=== PATIENT | female | born 1985 | race Caucasian/White ===

== ENCOUNTER 2020-01-27 13:20 | Emergency (ER) | payer MEDICAID ==
[~2020-01-27] VITALS: Ht 157.5 cm; Wt 71.8 kg
[~2020-01-27 13:20] MED LIST: LAMO100T PO; LAMO200T2 PO; LAMO25TA5 PO; LITH300C PO; OLAN15TA3 PO
[2020-01-27 13:47] VITALS: BP 108/75
[2020-01-27 14:31] LABS: CLARITY,URINE SLIGHTLY CLOUDY (Clear); COLOR,URINE YELLOW (Yellow); GLUCOSE, URINE NEGATIVE (Neg); KETONES,URINE NEGATIVE (Neg); LEUKOCYTE ESTERASE ,URINE MODERATE (Neg); NITRITES, URINE NEGATIVE (Neg); OCCULT BLOOD,URINE LARGE (Neg); PROTEIN,URINE 100 mg/dl (Neg); URINE HCG NEGATIVE (NEG); UROBILINOGEN,URINE 0.2 E.U/dL (0.2-1.0)
[2020-01-27 14:42] LABS: UA COLLECTION TYPE CLN CATCH MIDSTREAM
[2020-01-27 14:44] LABS: SQUAMOUS EPITHELIAL CELL,UR FEW /LPF (FEW)
[2020-01-27 14:45] LABS: WBC,URINE TNTC /HPF (0-4)
[2020-01-27 14:54] LABS: BACTERIA,URINE 1+ /HPF (Neg); RBC,URINE 50-100 /HPF (0-2)
[2020-01-27] MEDS ORDERED: NITR100C6 PO (15:03)
== END 2020-01-27 15:22 | disposition home or self-care (01) ==
LOC: ER 13:20
DX: N39.0 Urinary tract infection, site not specified (principal); J45.909 Unspecified asthma, uncomplicated; F31.9 Bipolar disorder, unspecified; Z79.899 Other long term (current) drug therapy
CPT/HCPCS: 81001; 81025; 87077; 87088; 87186; 99283

== ENCOUNTER 2020-04-15 18:36 | Emergency (ER) | payer MEDICAID ==
[~2020-04-15] VITALS: Ht 157.5 cm; Wt 75.0 kg
[~2020-04-15 18:36] MED LIST changes: +NITR100C6 PO
[2020-04-15 20:18] VITALS: BP 116/75
== END 2020-04-15 20:20 | disposition home or self-care (01) ==
LOC: ER 18:37
DX: S90.31XA Contusion of right foot, initial encounter (principal); W20.8XXA Other cause of strike by thrown, projected or falling object, initial encounter; Y93.89 Activity, other specified; Y92.89 Other specified places as the place of occurrence of the external cause; Y99.9 Unspecified external cause status
CPT/HCPCS: 73630; 99283

== ENCOUNTER 2020-10-01 18:13 | Emergency (ER) | payer MEDICAID ==
[~2020-10-01] VITALS: Ht 157.5 cm; Wt 72.9 kg
[2020-10-01] MEDS ORDERED: amoxicillin 250mg capsule PO ONE (19:25)
[2020-10-01] MEDS ORDERED: acetaminophen 325mg tablet PO ONE (19:25)
[2020-10-01] MEDS ORDERED: AMOX500C2 PO (19:28)
[2020-10-01 19:55] VITALS: BP 133/80
== END 2020-10-01 19:56 | disposition home or self-care (01) ==
LOC: ER 18:14
DX: K08.89 Other specified disorders of teeth and supporting structures (principal); J45.909 Unspecified asthma, uncomplicated; F31.9 Bipolar disorder, unspecified; Z79.2 Long term (current) use of antibiotics; Z79.899 Other long term (current) drug therapy; W21.05XA Struck by basketball, initial encounter; Y93.89 Activity, other specified; Y93.67 Activity, basketball
CPT/HCPCS: 41899; 99283; 99284

== ENCOUNTER 2023-02-21 13:35 | Emergency (ER) | payer MEDICAID ==
[~2023-02-21] VITALS: Ht 162.6 cm; Wt 81.0 kg
[2023-02-21 14:10] VITALS: BP 106/73
== END 2023-02-21 14:55 | disposition left against medical advice (07) ==
LOC: ER 13:36
DX: O26.892 Other specified pregnancy related conditions, second trimester (principal); R10.30 Lower abdominal pain, unspecified; J45.909 Unspecified asthma, uncomplicated; F31.9 Bipolar disorder, unspecified; Z79.899 Other long term (current) drug therapy; Z79.1 Long term (current) use of non-steroidal anti-inflammatories (NSAID); Z79.2 Long term (current) use of antibiotics
CPT/HCPCS: 99284

== ENCOUNTER 2023-08-14 09:41 | Inpatient (IN) | payer MEDICAID ==
[~2023-08-14] VITALS: Ht 157.5 cm; Wt 68.8 kg
--- NOTE | 2023-08-14 10:54 | NUR ---
patient is resting quielty while in bed, no distress noted.
--- NOTE | 2023-08-14 10:54 | NUR ---
patient changed into green scrubs and belongings removed and placed into room 27 in overflow.
[2023-08-14 11:05] LABS: URINE HCG NEGATIVE (NEG)
[2023-08-14 11:07] LABS: BILIRUBIN,URINE SMALL (Neg); CLARITY,URINE CLOUDY (Clear); COLOR,URINE YELLOW (Yellow); GLUCOSE, URINE NEGATIVE (Neg); KETONES,URINE >=80 mg/dl (Neg); LEUKOCYTE ESTERASE ,URINE NEGATIVE (Neg); NITRITES, URINE NEGATIVE (Neg); OCCULT BLOOD,URINE LARGE (Neg); PROTEIN,URINE 30 mg/dl (Neg); UROBILINOGEN,URINE 0.2 E.U/dL (0.2-1.0)
[2023-08-14 11:12] LABS: BASOPHILS % (AUTO) 0.5 % (0-1); EOSINOPHILS % (AUTO) 0.1 % (0-6); HEMATOCRIT 40.3 % (35.0-45.0); HEMOGLOBIN 12.9 g/dl (12.0-16.0); LYMPHOCYTES % (AUTO) 27.5 % (21-51); MEAN CORPUSCULAR HEMOGLOBIN 25.7 PG (27.0-31.0); MEAN CORPUSCULAR VOLUME 80.5 FL (78-98); MEAN PLATELET VOLUME 8.5 FL (7.4-10.4); MONOCYTES # (AUTO) 0.6 X10'3 (0-0.9); MONOCYTES % (AUTO) 7.8 % (2-12); NEUTROPHILS # (AUTO) 4.7 X10'3 (1.8-7.7); NEUTROPHILS % (AUTO) 64.1 % (42-75); PLATELET COUNT 275 X10'3 (140-440); RED BLOOD COUNT 5.01 X10'6 (4.20-5.60); RED CELL DISTRIBUTION WIDTH 15.1 % (11.5-14.5); WHITE BLOOD COUNT 7.3 X10'3 (4.5-11.0)
[2023-08-14 11:26] LABS: UA COLLECTION TYPE NON-SPECIFIED
[2023-08-14 11:33] LABS: ALANINE AMINOTRANSFERASE 40 U/L (12-78); ALBUMIN 3.8 G/DL (3.4-5.0); ALKALINE PHOSPHATASE 97 IU/L (46-116); ANION GAP 11 (8-16); ASPARTATE AMINO TRANSFERASE 31 U/L (10-37); BILIRUBIN,TOTAL 0.6 MG/DL (0.1-1.0); BLOOD UREA NITROGEN 9 MG/DL (7-18); BUN/CREATININE RATIO 13.2 (10.0-20.0); CALCIUM 9.4 MG/DL (8.5-10.1); CHLORIDE 104 MMOL/L (99-107); CREATININE 0.68 MG/DL (0.40-0.90); GLUCOSE 90 MG/DL (70-104); POTASSIUM 3.4 MMOL/L (3.5-5.1); SODIUM 139 MMOL/L (135-145); TOTAL CARBON DIOXIDE 24.1 MMOL/L (24-32); TOTAL PROTEIN 7.7 G/DL (6.4-8.2); eCRCL 90 ML/MIN; eGFR > 90 ML/MIN
[2023-08-14 11:33] LABS: BACTERIA,URINE FEW /HPF (Neg); MUCUS STRANDS FEW /LPF (Neg); RBC,URINE TNTC /HPF (0-2); SQUAMOUS EPITHELIAL CELL,UR MODERATE /LPF (FEW); WBC,URINE 0-4 /HPF (0-4)
[2023-08-14 11:47] LABS: URINE AMPHETAMINE SCREEN NEGATIVE (Neg); URINE BARBITUATE SCREEN NEGATIVE (Neg); URINE BENZODIAZEPINES SCREEN NEGATIVE (Neg); URINE CANNABINOID SCREEN NEGATIVE (Neg); URINE COCAINE SCREEN NEGATIVE (Neg); URINE METHADONE SCREEN NEGATIVE (Neg); URINE OPIATE SCREEN NEGATIVE (Neg); URINE PHENCYCLIDINE SCREEN NEGATIVE (Neg)
[2023-08-14 11:48] LABS: ETHANOL < 10 MG/DL (<10)
[2023-08-14 11:59] LABS: ACETAMINOPHEN < 2.0 UG/ML (10-30)
--- NOTE | 2023-08-14 12:38 | NUR ---
Pt brought over from ER main bed 8 to overflow bed 21. Was initially going to put her in bed 20 but she did not wish to go into this room because the hole in the wall and a small hole in the sheet bothered her immensly. Pt is restless, hyperverbal, and hypomanic. Pt asked for a toothbrush and was provided with one. Pt vigorously brushed her teeth for a long period of time. Pt is pleasant and redirectable.
--- NOTE | 2023-08-14 12:47 | NUR ---
pt packet sent to [facility]
--- NOTE | 2023-08-14 12:58 | NUR ---
Pt is singing and talking to herself.
[2023-08-14] MEDS ORDERED: NO HOME MEDS (13:03)
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
--- NOTE | 2023-08-14 14:31 | NUR ---
Pt was becoming agitated because she is unhappy to be on a mental health hold and she does not wish to go to an acute psych unit. Pt is in denial about having any mental health issues. Pt reports that she has been healed by God. Pt reports that she was on a monthly injection before and she did not know when to stop eating and couldn't feel her feelings.
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
--- NOTE | 2023-08-14 15:18 | NUR ---
Pt reports her 's name is Cristino Lowery.
--- NOTE | 2023-08-14 15:20 | NUR ---
Pt reports she gave to her baby at [facility] in [place].
[2023-08-14] MEDS ORDERED: haloperidol lactate 5mg/ml inj ONE (15:39)
[2023-08-14] MEDS ORDERED: diphenhydrAMINE 50 mg/ml inj ONE (15:40)
[2023-08-14] MEDS ORDERED: LORazepam 2 mg/ml vial ONE (15:41)
--- NOTE | 2023-08-14 15:59 | NUR ---
Pt is manic and became agitated with angry hostile verbalizations about not being mentally ill, wanting out of here, she doesn't need to go to a psych unit. Reality orientation, verbal de-escalation, distraction and redirection techniques, as well as a show of support by security ineffective. Attempted to get pt to agree to take some oral medication but she just kept repeating that she doesn't need medications. Obtained verbal order from Dr Talavera for Haldol 10 mg, Ativan 2 mg, and Benadryl 50 mg IM given at 1555. Pt did not fight the injection, no physical restraint necessary.
--- NOTE | 2023-08-14 17:42 | NUR ---
Florecita called from [facility] to report that pt has been accepted by Dr Vick at [facility] at 1735. Estimated transfer time 2300 tonight.
--- NOTE | 2023-08-14 18:30 | NUR ---
APS report filed; called and faxed. Spoke with Piedad.
--- NOTE | 2023-08-14 18:38 | NUR ---
Received pt lying in bed sleeping. Pt declined dinner tray.
--- NOTE | 2023-08-14 21:23 | NUR ---
Pt departed with [facility] new autos delivery driver with belongins and escorted out with security
--- NOTE | 2023-08-14 21:27 | NUR ---
disregard previous note
--- NOTE | 2023-08-14 23:44 | NUR ---
Pt escorted to [facility] with security and all her belongings.
[2023-08-14] MEDS ORDERED: loperamide 2mg capsule PO PRN (23:55)
[2023-08-14] MEDS ORDERED: mag hydrox/Alum hydrox/simeth 30ml oral suspension PO PRN (23:55)
[2023-08-14] MEDS ORDERED: magnesium hydroxide 30ml (MOM) UD suspension PO PRN (23:55)
[2023-08-14] MEDS ORDERED: acetaminophen 325mg tablet PO PRN ×2 (23:55)
[2023-08-14 23:56] VITALS: BP 105/69; PULSE 67; RESP 15; TEMP 98.3; O2SAT 99
[2023-08-15 00:55] VITALS: RESP 15; O2SAT 99
[2023-08-15 01:08] VITALS: BP 105/69; PULSE 67; RESP 15; TEMP 98.3; O2SAT 99
--- NOTE | 2023-08-15 02:12 | NUR ---
Admit Note: Patient arrived via W/C from [facility]. Pt on 5150 for Grave Disability, per hold pt was seen urinating in public. Presents psychotic and manic. Pt presents with symptoms of severe eve, unable to formulate a plan to meet needs due to thought disorder. No place to sleep. Pt was kicked out of [place] and has been non-medication compliant. Pt is cooperative with skin check. Pt has a 5 month old child that was taken by CPS.
[2023-08-15 07:00] VITALS: RESP 18; O2SAT 99
[2023-08-15 08:43] VITALS: BP 101/71; PULSE 87; RESP 18; TEMP 97.1; O2SAT 18
[2023-08-15 08:45] LABS: CHOL/HDL RATIO 2.5 (0.00-4.99); CHOLESTEROL 155 MG/DL (0-200); HDL CHOLESTEROL 63 MG/DL (35-60); LDL CHOLESTEROL 71 MG/DL (50-100); TRIGLYCERIDES 65 MG/DL (20-135)
[2023-08-15 08:48] LABS: HEMOGLOBIN A1C 5.6 % (4.5-6.2)
[2023-08-15] MEDS ORDERED: potassium Cl 20 mEq SR tablet PO STA (12:04)
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
[2023-08-15 19:00] VITALS: BP 98/65; PULSE 75; RESP 15; TEMP 98.1; O2SAT 99
[2023-08-15] MEDS: lithium carbonate 150mg capsule PO SCH (20:00)
[2023-08-15] MEDS ORDERED: risperiDONE 0.5mg tablet PO SCH (21:00)
[2023-08-15] MEDS ORDERED: PALIPERIDONE 3 MG TAB.ER.24 PO SCH (21:00)
--- NOTE | 2023-08-16 01:22 | NUR ---
RN PROGRESS NOTE: LEGAL HOLD: 5150 for GD PROBLEM: BIB Law Enforcement d/t urinating in public, paranoid delusions, and manic behavior. Client has been non-compliant with medications. Has a five month old infant that was taken by CPS. INTERVENTIONS: 1:1 assessment, therapeutic conversation, active listening, medication administration/education/monitoring, behavior monitoring and intervention as needed; provided distraction, redirection, positive reinforcement, reality orientation, and maintained Q15 minute safety checks. RESPONSE: Client was sitting on her bed, reading the Bible at [facility]. She stated "I want to memorize this. It's 16 verses." (Referring to Psalm 91.) She began to quote the first verse. Client then asked this RN to [place] with her because she was having difficulty falling asleep. Client stated she would not take any medications and asked "Am I going to get into trouble for not taking medicine?" This RN stated "You won't get into trouble - but we do encourage you to take the meds." She is soft spoken, has a blunted affect, and depressed mood. Paranoid delusions, client asked if we had 'put something in her water'. Client fell asleep w/o difficulty. PLAN: Pt. continues to require a safe and supportive environment.
[2023-08-16 07:00] VITALS: RESP 18; O2SAT 98
[2023-08-16] MEDS: lithium carbonate 150mg capsule PO SCH ×3 (07:56→20:08)
[2023-08-16 08:00] VITALS: BP 111/77; PULSE 70; RESP 18; TEMP 97.3; O2SAT 98
--- NOTE | 2023-08-16 17:04 | NUR ---
Nursing Progress Note: Lorelei Patient arrived via W/C from [facility]. Pt on 5150 for Grave Disability, per hold pt was seen urinating in public. Presents psychotic and manic. Pt presents with symptoms of severe eve, unable to formulate a plan to meet needs due to thought disorder. No place to sleep. Pt was kicked out of House and has been non-medication compliant. Pt is cooperative with skin check. Pt has a 5 month old child that was taken by CPS. Interventions: 1:1 assessment, therapeutic conversation, active listening, medication administration/education/monitoring, behavior monitoring and intervention as needed; provided distraction, redirection, positive reinforcement, reality orientation, and maintained Q15 minute safety checks. Response: Receive pt awake reading the bible in her room. Pt sat in TV room this am and told this RN that she would not be taking her medication. Pt stated Sally been misdiagnosed, Im a cain and need spiritual healing I dont need medications. Pt refused to put on wrist band and refused to have her labs drawn this am. Pt states she is near sighted, this RN observed pt looking over my head while talking. Pt concerned about how to act to be released from this unit. 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 Pt states that she thinks the reason she is here is because her said things about her to get her put in here. Performed 1:1 bedside. Pt denies SI/HI and AVH. Pt observed singing in the hallway. Pt displaying a labile mood, having long conversations with staff members about concerns to leave. Staff educated pt to discuss feelings with PA today. At 1030 pt agreed to take morning medications. Pt stating that something isnt right and I need to take something. Pt participated in snacks. Pt states that she has someone to stay with named Piedad. PA agreed to speak with Piedad tomorrow. Plan : Pt. continues to require a safe and supportive environment.
[2023-08-16 19:00] VITALS: BP 103/66; PULSE 74; RESP 16; TEMP 97.7; O2SAT 99
[2023-08-16 19:25] VITALS: BP 103/66; PULSE 74; RESP 16; TEMP 97.7; O2SAT 99
--- NOTE | 2023-08-17 03:54 | NUR ---
RN PROGRESS NOTE: LEGAL HOLD: 5150 for GD PROBLEM: BIB Law Enforcement d/t urinating in public, paranoid delusions, and manic behavior. Client has been non-compliant with medications. Has a five month old infant that was taken by CPS. INTERVENTIONS: 1:1 assessment, therapeutic conversation, active listening, medication administration/education/monitoring, behavior monitoring and intervention as needed; provided distraction, redirection, positive reinforcement, reality orientation, and maintained Q15 minute safety checks. RESPONSE: Client stayed in her room during the shift. She socialized with her roommate. During PM med pass she was prone on her bed, with her face in the pillow, and was tearful. She stated "I don't want to take any medicine!" She then agreed to take the 150 mg [place] Cap PO. Later her mood improved. She fell asleep without difficulty. PLAN: Pt. continues to require a safe and supportive environment.
[2023-08-17 07:00] VITALS: RESP 14; O2SAT 99
[2023-08-17] MEDS: ARIPIPRAZOLE 10 MG TABLET PO SCH (07:14)
[2023-08-17] MEDS: lithium carbonate 150mg capsule PO SCH ×2 (07:14→20:34)
[2023-08-17 08:17] VITALS: BP 108/72; PULSE 68; RESP 14; TEMP 97.7; O2SAT 99
[2023-08-17 08:28] LABS: ALANINE AMINOTRANSFERASE 32 U/L (12-78); ALBUMIN 3.7 G/DL (3.4-5.0); ALBUMIN/GLOBULIN RATIO 0.9 (1.1-1.5); ALKALINE PHOSPHATASE 96 IU/L (46-116); ANION GAP 9 (8-16); ASPARTATE AMINO TRANSFERASE 19 U/L (10-37); BILIRUBIN,TOTAL 0.2 MG/DL (0.1-1.0); BLOOD UREA NITROGEN 11 MG/DL (7-18); BUN/CREATININE RATIO 13.9 (10.0-20.0); CALCIUM 9.5 MG/DL (8.5-10.1); CHLORIDE 103 MMOL/L (99-107); CREATININE 0.79 MG/DL (0.40-0.90); GLUCOSE 91 MG/DL (70-104); POTASSIUM 4.4 MMOL/L (3.5-5.1); SODIUM 137 MMOL/L (135-145); TOTAL PROTEIN 7.6 G/DL (6.4-8.2); eCRCL 78 ML/MIN; eGFR 82 ML/MIN
--- NOTE | 2023-08-17 16:28 | NUR ---
Nursing Progress Note: Lorelei Patient arrived via W/C from ER. Pt on 5150 for Grave Disability, per hold pt was seen urinating in public. Presents psychotic and manic. Pt presents with symptoms of severe eve, unable to formulate a plan to meet needs due to thought disorder. No place to sleep. Pt was kicked out of [place] and has been non-medication compliant. Pt is cooperative with skin check. Pt has a 5 month old child that was taken by CPS. Interventions: 1:1 assessment, therapeutic conversation, active listening, medication administration/education/monitoring, behavior monitoring and intervention as needed; provided distraction, redirection, positive reinforcement, reality orientation, and maintained Q15 minute safety checks. Response: Received pt awake in hallway calling my name. Pt observed smiling and asking about leaving today with her sister. Pt read this RN a passage from the bible this morning stating that it spoke to her relationship with her and then took her medications cooperatively. Pt appears to be hypomanic, grandiose and hyper verbal. Overheard pt saying to staff you can call me the genius and observed pt reciting bible verses to staff. When breakfast was delivered this morning pt pushed the exit door in the community room and sounded the alarm. When this RN spoke to her about it she stated Im sorry, I didnt know that wasnt allowed. But, it says exit and thats a lie and I dont like lies. Pt told staff she did it on purpose. Pt moved to the TV room to eat breakfast because pt stated that the music on the TV scared her. Pt went to sleep after breakfast. Pt states that she needs to leave so that she can be with her and see her child who is with CPS. Pt states that her sister Pamela lives in [place] and is willing to take her in. Pt observed talking in the community room with peers and coloring/journaling on the floor in the TV room. Performed 1:1 bedside. Pt denies SI/HI and AVH. At 1430 pt began yelling in her bedroom about her . This RN and Dr. Vick were able to deescalate the situation and in the end pt was smiling and laughing. At 1600 pt began yelling in her room after speaking on the phone with someone. Pt able to calm down. Pt very labile; refusing to take any PRNs to calm down. Pt needs to be redirected multiple times during the day. Pt gave this RN a hug towards the end of the shift. Plan : Pt. continues to require a safe and supportive environment. Addendum: 08/17/23 at 1648 by Dania Aguillon RN Pt told staff that CPS is unaware that she is in the hospital and she is debating if she should notify them. Pt's plan is to be discharged and then attend a meeting as if this hospital visit never happened.
[2023-08-17 19:00] VITALS: RESP 16; O2SAT 98
[2023-08-17 20:39] VITALS: BP 103/66; PULSE 76; RESP 16; TEMP 97.4; O2SAT 98
--- NOTE | 2023-08-17 23:22 | NUR ---
RN PROGRESS NOTE: LEGAL HOLD: 5150 for GD PROBLEM: BIB Law Enforcement d/t urinating in public, paranoid delusions, and manic behavior. Client has been non-compliant with medications. Has a five month old infant that was taken by CPS. INTERVENTIONS: 1:1 assessment, therapeutic conversation, active listening, medication administration/education/monitoring, behavior monitoring and intervention as needed; provided distraction, redirection, positive reinforcement, reality orientation, and maintained Q15 minute safety checks. RESPONSE: pt. received awake in her room at change of shift . Pt. is pleasant and cooperative. She denies SI/HI/AH/VH. Pt. states "I'm sad, there's a lot going on in my life but, I'm okay". Pt. was observed sitting in the manuel writing and socializing with staff. Pt. participated in evening snack. She took her night medications without issue. Observed and appears sleeping without difficulty. PLAN: Pt. continues to require a safe and supportive environment. Addendum: 08/18/23 at 0328 by Lorena Mckinney LVN pt. awaken in the night and walked down to where staff were. Pt. was noted to be agitated and stating a delusional statement about her . Pt. would only speak to the female MHT . Pt. returned to her room and was checked on. Pt. became agitated at this principal technical writer for doing so and stated "i'm fine, just go away" as she sat on the bed reading the bible. pt. appears to be sleeping at this time.
--- NOTE | 2023-08-18 04:52 | NUR ---
LINE DECORATOR documentation: I have reviewed all interventions, assessments performed and documented by Lorena AGRAWAL
[2023-08-18 07:00] VITALS: RESP 18; O2SAT 98
[2023-08-18] MEDS: ARIPIPRAZOLE 10 MG TABLET PO SCH (07:19)
[2023-08-18] MEDS: lithium carbonate 150mg capsule PO SCH ×2 (07:19→19:42)
[2023-08-18 08:00] VITALS: BP 104/75; PULSE 88; RESP 18; TEMP 97.2; O2SAT 98
--- NOTE | 2023-08-18 14:40 | NUR ---
CASE MANAGEMENT This Outside Machinist Helper met with Pt. after the hearing, she was very upset that she could not leave yet. She was hoping to leave tomorrow. Pt is interested in going to the [facility] to continue stabilizing once she leaves here. Will put a referral in for her today. Pt. also reported that she does not consent for this Outside Machinist Helper to speak to her sister as she has lost trust in her. Alexandra Recinos LCSW
--- NOTE | 2023-08-18 17:14 | NUR ---
Nursing Progress Note: Lorelei Patient arrived via W/C from [facility]. Pt on 5150 for Grave Disability, per hold pt was seen urinating in public. Presents psychotic and manic. Pt presents with symptoms of severe eve, unable to formulate a plan to meet needs due to thought disorder. No place to sleep. Pt was kicked out of [place] and has been non-medication compliant. Pt is cooperative with skin check. Pt has a 5 month old child that was taken by CPS. Interventions: 1:1 assessment, therapeutic conversation, active listening, medication administration/education/monitoring, behavior monitoring and intervention as needed; provided distraction, redirection, positive reinforcement, reality orientation, and maintained Q15 minute safety checks. Response: Received pt awake, singing in her bathroom. Pt took medications cooperatively and ate breakfast in the community room. Pt showered this am. Performed 1:1 bedside. Pt denies SI/HI and AVH. Pt states I dont think I have time for nursing school. I have to take care of my baby. Pt appears to be calmer today, no labile episodes observed. Pt states that someone has agreed to purchase her a tent to stay in. Pt expressed agreement with court decision for her to stay on the unit longer. Pt states that it would be good for her to be more stable. Appearance is well groomed. Napped intermittently throughout the day. Plan : Pt. continues to require a safe and supportive environment.
[2023-08-18 19:00] VITALS: RESP 16; O2SAT 98
[2023-08-18 19:16] VITALS: BP 117/79; PULSE 91; RESP 16; TEMP 98.6; O2SAT 98
--- NOTE | 2023-08-19 01:20 | NUR ---
Nursing Progress Note: Lorelei Problem: Pt on 5149 for Grave Disability, per hold pt was seen urinating in public. Presented psychotic and manic. Unable to formulate a plan to meet needs due to thought disorder. No place to sleep. Pt was kicked out of [place] and has been non-medication compliant. Pt has a 5 month old child that was taken by CPS. Interventions: 1:1 assessment, therapeutic conversation, active listening, medication administration/education/monitoring, behavior monitoring and intervention as needed; provided distraction, redirection, positive reinforcement, reality orientation, and maintained Q15 minute safety checks. Response: Pt showered on and was dressed in an attractive overly formal dress. She stayed in her room most of shift interacting with roommate and working on a puzzle. Went to group room for snack. Pleasant and cooperative but has multiple requests at times. Pt denies SI/HI and AVH. Given second dose of Trazodone for sleep. After that was able to go to sleep.. Plan : Pt. continues to require a safe and supportive environment. Addendum: 08/19/23 at 0231 by Soumya Rivas RN Disregard charting about Trazodone wrong pt.
[2023-08-19 07:00] VITALS: RESP 16; O2SAT 98
[2023-08-19] MEDS: ARIPIPRAZOLE 15 MG TABLET PO SCH ×2 (07:57→08:06)
[2023-08-19] MEDS: lithium carbonate 150mg capsule PO SCH ×2 (07:59→20:09)
[2023-08-19 08:00] VITALS: BP 103/73; PULSE 69; RESP 14; TEMP 97.9; O2SAT 99
[2023-08-19] MEDS ORDERED: ARIPIPRAZOLE 10 MG TABLET PO SCH (08:00)
--- NOTE | 2023-08-19 09:38 | NUR ---
Initial: Pt admit for psychosis and bipolar d/o. Currently on a regular diet and eating well, documented with 100% PO intake of all meals with the exception of 75% PO intake of lunch 08/15, overall meeting estimated nutrient needs. LBM 08/18 per EMR. No nutrition intervention warranted at this time. Will continue to follow and make recommendations as appropriate. Recommendations: 1) Continue regular diet 2) Bowel care PRN 3) Weekly scaled weights Addendum: 08/19/23 at [address] Amended: Links added.
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
[2023-08-19 19:00] VITALS: BP 119/74; PULSE 80; RESP 16; TEMP 98.7; O2SAT 98; O2SAT 99
--- NOTE | 2023-08-20 04:33 | NUR ---
RN PROGRESS NOTE: LEGAL HOLD: 5250 for GD PROBLEM: BIB Law Enforcement d/t urinating in public, paranoid delusions, and manic behavior. Client has been non-compliant with medications. Has a five month old infant that was taken by CPS. INTERVENTIONS: 1:1 assessment, therapeutic conversation, active listening, medication administration/education/monitoring, behavior monitoring and intervention as needed; provided distraction, redirection, positive reinforcement, reality orientation, and maintained Q15 minute safety checks. RESPONSE: Client was talkative, restless, and disruptive at times. At COS she was in her room, on the phone, singing loudly. She made illogical statements that were disconnected. She talked about her , the Bible, and being "misdiagnosed at 18". She stated "I was stung by the B. But the B didn't kill me." "I was diagnosed with the B." When asked is the 'B' Bipolar? Client shook her head 'yes' and stated "I don't say that word." Client had snack. She is hesitant to take meds, she did take her [place] but stated she need to "talk to the Doctor about it". Client had difficulty falling and staying asleep. Labile mood. Easily agitated. PLAN: Pt. continues to require a safe and supportive environment.
[2023-08-20 07:00] VITALS: BP 104/68; PULSE 72; RESP 18; TEMP 98.6; O2SAT 98
[2023-08-20] MEDS: lithium carbonate 150mg capsule PO SCH ×2 (09:02→20:54)
[2023-08-20] MEDS: ARIPIPRAZOLE 10 MG TABLET PO SCH (09:02)
--- NOTE | 2023-08-20 17:32 | NUR ---
Nursing Progress Note: Lorelei Problem: Pt admitted on 515 for Grave Disability, per hold pt was seen urinating in public. Presents psychotic and manic. Pt presents with symptoms of severe eve, unable to formulate a plan to meet needs due to thought disorder. No place to sleep. Pt was kicked out of [place] and has been non-medication compliant. Pt has a 5 month old child that was taken by CPS. Interventions: 1:1 assessment, therapeutic conversation, active listening, medication administration/education/monitoring, behavior monitoring and intervention as needed; provided distraction, redirection, positive reinforcement, reality orientation, and maintained Q15 minute safety checks. Response: Patient up on the unit at change of shift. Patient going around the unit asking when the doctor will be here, and when she will be discharged. Patient only slept 3.25 hours last night. Patient is well groomed. Patient attends meals and snacks in the community room. At one point when I was in the next room, I could hear her crying loudly, the tech checked on her and she stated that she just couldn't talk about what was wrong. Patient is labile and intrusive. Plan : Pt. continues to require a safe and supportive environment. Addendum: 08/20/23 at 1745 by Irasema Holm RN Patient initially refused her a.m. medications, but then when LAURA Gonzales arrived, she was asking to take her medications.
[2023-08-20 19:00] VITALS: BP 110/74; PULSE 74; RESP 16; O2SAT 100
--- NOTE | 2023-08-21 03:42 | NUR ---
RN PROGRESS NOTE: LEGAL HOLD: 5250 for GD PROBLEM: BIB Law Enforcement d/t urinating in public, paranoid delusions, and manic behavior. Client has been non-compliant with medications. Has a five month old infant that was taken by CPS. INTERVENTIONS: 1:1 assessment, therapeutic conversation, active listening, medication administration/education/monitoring, behavior monitoring and intervention as needed; provided distraction, redirection, positive reinforcement, reality orientation, and maintained Q15 minute safety checks. RESPONSE: Clients' mood was improved since previous night. She went to bed early. Initially she refused her PM 300 mg [place] Cap but then took it, reluctantly. She does not have insight into her mental health needs. Affect is blunted. Had PM snack. PLAN: Pt. continues to require a safe and supportive environment.
[2023-08-21 07:00] VITALS: BP 109/76; PULSE 99; RESP 18; TEMP 97.2; O2SAT 100
[2023-08-21] MEDS: lithium carbonate 150mg capsule PO SCH ×2 (08:18→20:32)
[2023-08-21] MEDS: ARIPIPRAZOLE 10 MG TABLET PO SCH (08:18)
--- NOTE | 2023-08-21 16:04 | NUR ---
Nursing Progress Note: Problem: Pt admitted on 5149 for Grave Disability, per hold pt was seen urinating in public. Presents psychotic and manic. Pt presents with symptoms of severe eve, unable to formulate a plan to meet needs due to thought disorder. No place to sleep. Pt was kicked out of [place] and has been non-medication compliant. Pt has a 5 month old child that was taken by CPS. Interventions: 1:1 assessment provided by morning nurse, TANJA Villalpando. Medication administration/education/monitoring. Behavior monitoring and intervention as needed; maintained Q15 minute safety checks. Response: Per report pt cooperative with morning assessment. Pt accepted by [facility]. She will be discharged on Friday. After lunch pt heard yelling and screaming while on the phone. Pt states, "it was my sister I shouldn't call her." Easily redirected. Pt offered PRN medication for anxiety and declined. She agreed to talk to staff with upset and not to yell on the unit. She remained calm the rest of the afternoon. Plan: Pt. continues to require a safe and supportive environment.
[2023-08-21 19:51] VITALS: BP 130/84; PULSE 78; RESP 16; TEMP 97.5; O2SAT 99
--- NOTE | 2023-08-21 21:45 | NUR ---
Pt in the manuel way yelling, stating I am held here against my will and I want to get out of here so I can go see my baby" My told me that I can go home tonight or tomorrow- I want to go home." Explained to pt. that she is not safe to be discharged yet but we are helping take of her here and that she is safe-pt. continued to insist. Patient came to the nurses station while Notified LAURA Meneses, about the patients behavior; Gideon reinforced that the patient is on 5250. Finally, pt. calmed down and agreed to stay- walked pt. to the room; pt. remained calm.
[2023-08-21] MEDS ORDERED: traZODone 50mg tablet PO ONE (21:55)
--- NOTE | 2023-08-22 04:53 | NUR ---
Nursing Progress Note: Problem: Pt admitted on 5150 for Grave Disability, per hold pt was seen urinating in public. Presents psychotic and manic. Pt presents with symptoms of severe eve, unable to formulate a plan to meet needs due to thought disorder. No place to sleep. Pt was kicked out of [place] and has been non-medication compliant. Pt has a 5 month old child that was taken by CPS. Interventions: Provided 1:1 assessment, medication administration, education, monitoring behavior and interventions as needed; maintained Q15 minute safety checks. Response: Pt was in her room at beginning of shift and was lying in bed. During 1:1 assessment pt denies AVH/SI/HI and was compliant with all medications. She states that she is feeling under the weather and her head and bones in her chest hurt. She was given earplugs for sleep as well as Tylenol for her pain. She was agreeable with treatment. Then around 0 she got agitated and was asking one of the other nurses to turn off the alarm so she could leave out the exit door. She was demanding that she be released and that she had to leave in order to go to her babys cps meetings. She was demanding to speak to the manager philosophy and when her primary nurse tried to calm her down she claimed to not know who the nurse was. Security came up and spoke with pt a bit and charge nurse was able to calm pt down to agreeing to rest for the night. Pt then came back down the manuel and asked that her room be cleaned and sanitized because it smelled. RN then got an odor eliminating spray and sprayed pts room. Pt was satisfied with that and then laid down for the night. Pt came out of room around 0430 to ask for headphones to listen to and went back to sleep. Plan: Pt. continues to require a safe and supportive environment.
[2023-08-22 07:00] VITALS: RESP 16; O2SAT 98
[2023-08-22 07:55] VITALS: BP 161/90; PULSE 82; RESP 16; TEMP 98.4; O2SAT 98
[2023-08-22] MEDS: ARIPIPRAZOLE 10 MG TABLET PO SCH (07:59)
[2023-08-22] MEDS: lithium carbonate 150mg capsule PO SCH ×2 (07:59→21:00)
--- NOTE | 2023-08-22 08:28 | NUR ---
[facility] accepted Pt. She has been accepted for Friday admit. Alexandra Recinos LCSW
--- NOTE | 2023-08-22 16:26 | NUR ---
Nursing Progress Note: Problem: Pt admitted on 5149 for Grave Disability, per hold pt was seen urinating in public. Presents psychotic and manic. Pt presents with symptoms of severe eve, unable to formulate a plan to meet needs due to thought disorder. No place to sleep. Pt was kicked out of [place] and has been non-medication compliant. Pt has a 5 month old child that was taken by CPS. Interventions: 1:1 assessment, therapeutic conversation, active listening, medication administration/education/monitoring, behavior monitoring and intervention as needed; provided distraction ,redirection, limit setting, reality orientation, and maintained Q15 minute safety checks. Response: Pt was up before breakfast pacing the unit and making requests of staff. Pt showered before breakfast. Pt was cooperative with her morning medications with much encouragement. Pt only wished to take one 10 mg Abilify tab instead of two to equal her 20 mg dose. Pt wished to speak with the doctor first. This RN reminded her that she had been taking the 20 mg dose since the and patient took the med. Pt is restless, hyperverbal, intrusive, and easily frustrated. Pt is demanding, loud, and disruptive at times. Pt perseverates on being discharged and gets angry when told she cannot leave today. Pt makes multiple requests for staff to look up phone numbers for her. Pt asked this RN if she could come into the charting room and use a computer. Pt becomes agitated with verbal outbursts and requires frequent limit setting, verbal de-escalation and redirection. Pt is religiously preoccupied. Pt had a chest X-ray done to r/o TB with normal results. Plan: Pt has been accepted at the [facility] with a plan for her to discharge Friday.
[2023-08-22 19:30] VITALS: BP 131/87; PULSE 77; RESP 18; TEMP 98.2; O2SAT 99
--- NOTE | 2023-08-23 04:24 | NUR ---
Nursing Progress Note: Problem: Pt admitted on 5149 for Grave Disability, per hold pt was seen urinating in public. Presents psychotic and manic. Pt presents with symptoms of severe eve, unable to formulate a plan to meet needs due to thought disorder. No place to sleep. Pt was kicked out of [place] and has been non-medication compliant. Pt has a 5 month old child that was taken by CPS. Interventions: Provided 1:1 assessment, medication administration, education, monitoring behavior and interventions as needed; maintained Q15 minute safety checks. Response: At beginning of shift pt was very cooperative and agreeable to assessment and communicating well. When med pass came pt refused her lithium as she stated 900 mg thats too much. I will take my 300 and thats it. Actually, since he upped it to 900, I dont even want to take 300, I am not taking any meds, thats it, Im not taking any meds. was notified and he stated he would speak with her tomorrow about it. After that her and her roommate had a disagreement about speaking with each other. The situation was diffused by charge nurse advising Lorelei to just not talk to roommate as roommate had stated she did not want to talk or listen to Lorelei at all. Lorelei came out to complain that her roommate was on the phone and was given headphones to listen to which she was very grateful for. Pt asked for snacks multiple times. Around 2224 Pt pushed on the exit long enough for the alarm to barely start sounding but did not completely open the door. She then went off on a rant about how she wanted to be released and that she wanted to know if there were any notes stating when she would be discharged, even though her and her RN had discussed that she is planned to be DCd on Friday. Pt then went back to her room and shut her door and fell asleep. Around 0200 pt woke up as staff was cleaning the room nxt to hers and pt became intrusive trying to come in the room. She was directed to go back to her room and pt went to room and began crying. Charge nurse came and calmed her down a bit, pt sat by the nurses station for a few minutes and colored, then returned to her bedroom. Pt has outbursts throughout the night crying about her . Pt sitting in hallway, refuses to go to sleep, refuses any medication that will help calm her. Pt requested having jello for a snack. Plan: Pt. continues to require a safe and supportive environment.
[2023-08-23 07:00] VITALS: RESP 14; O2SAT 95
[2023-08-23 08:00] VITALS: BP 101/66; PULSE 64; RESP 14; TEMP 97.6; O2SAT 95
[2023-08-23] MEDS: ARIPIPRAZOLE 10 MG TABLET PO SCH (08:31)
[2023-08-23] MEDS ORDERED: aripiprazole 400mg suspension ER syringe IM ONE (12:30)
[2023-08-23] MEDS ORDERED: LORazepam 1 MG tablet PO ONE (16:20)
[2023-08-23] MEDS ORDERED: LORazepam 2 mg/ml vial ONE (16:30)
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
[2023-08-23 19:00] VITALS: RESP 16
[2023-08-23] MEDS: lithium carbonate 150mg capsule PO SCH (20:28)
--- NOTE | 2023-08-24 05:22 | NUR ---
Nursing Progress Note: Problem: Pt admitted on 5150 for Grave Disability, per hold pt was seen urinating in public. Presents psychotic and manic. Pt presents with symptoms of severe eve, unable to formulate a plan to meet needs due to thought disorder. No place to sleep. Pt was kicked out of [place] and has been non-medication compliant. Pt has a 5 month old child that was taken by CPS. Interventions: Provided 1:1 assessment, medication administration, education, monitoring behavior and interventions as needed; maintained Q15 minute safety checks. Response: Pt was crying in her bed at the beginning of shift. On assessment pt had a sad depressive mood about her but and after RN and her said a prayer and discussed the idea of letting go of the past and letting God sort things out the pt stated she felt like laying down with her Bible. Later during med pass pt was reluctant to take the 900mg of [place] ordered but after explanation of why the doctor stated he increased the med (per the progress note) the pt agreed to take it. After taking the meds the pt was heard only one time making an outburst in her room then fell asleep and has slept well through the night. Plan: Pt. continues to require a safe and supportive environment.
[2023-08-24 07:00] VITALS: RESP 18; O2SAT 99
[2023-08-24 07:54] VITALS: BP 127/77; PULSE 87; RESP 18; TEMP 98.4; O2SAT 99
[2023-08-24] MEDS: ARIPIPRAZOLE 10 MG TABLET PO SCH (08:04)
--- NOTE | 2023-08-24 17:39 | NUR ---
Nursing Progress Note: Problem: Pt admitted on 515 for Grave Disability, per hold pt was seen urinating in public. Presents psychotic and manic. Pt presents with symptoms of severe eve, unable to formulate a plan to meet needs due to thought disorder. No place to sleep. Pt was kicked out of [place] and has been non-medication compliant. Pt has a 5 month old child that was taken by CPS. Interventions: 1:1 assessment, therapeutic conversation, active listening, medication administration/education/monitoring, behavior monitoring and intervention as needed; provided distraction ,redirection, limit setting, reality orientation, verbal de-escalation, show of support by staff and security, administered OSEGUERA, administered emergent medication, and maintained Q15 minute safety checks. Response: Patient awake at change of shift. Patient walking the hallways talking to staff and peers. RN was administering meds to other patients and patient started escalating in the hallway by the nurses station, stating that she needed to talk to someone. I informed her that I would give medications and be right with her. She slowly de-escalated and we went to her bedside for 1:1. Patient states that she has been trying to talk to someone for three days. Patient talked about her , her baby, her plan to go to [facility]. She expressed the desire to become stable so that she can get her baby back. RN spoke to her about her impulsivity, and that she would need to ask for help before she starts acting out, patient states understanding of this in herself. Patient requested that we pray together, which we did and patient felt some contentment. Plan: Pt has been accepted at the [facility] with a plan for her to discharge Friday.
[2023-08-24 19:00] VITALS: BP 96/68; PULSE 82; RESP 16; TEMP 98.1; O2SAT 100
[2023-08-24] MEDS: lithium carbonate 150mg capsule PO SCH (20:47)
--- NOTE | 2023-08-25 01:09 | NUR ---
Nursing Progress Note: Problem: Pt admitted on 5149 for Grave Disability, per hold pt was seen urinating in public. Presents psychotic and manic. Pt presents with symptoms of severe eve, unable to formulate a plan to meet needs due to thought disorder. No place to sleep. Pt was kicked out of [place] and has been non-medication compliant. Pt has a 5 month old child that was taken by CPS. Interventions: 1:1 assessment, therapeutic conversation, active listening, medication administration/education/monitoring, behavior monitoring and intervention as needed; provided distraction ,redirection, limit setting, reality orientation, verbal de-escalation, show of support by staff and security, administered OSEGUERA, administered emergent medication, and maintained Q15 minute safety checks. Response: Pt was sleeping during beginning of shift. Pt was awakened to introduce publications writer. Pt delays responses at times but observable processing delay noted. She plans to discharge to [facility] tomorrow. She took all medications as ordered. She requests multiple snacks during shift. She was concerned during shift about her and requested prayer. She was able to initiate sleeping with no concerns. Plan: Pt has been accepted at the [facility] with a plan for her to discharge Friday.
[2023-08-25 07:00] VITALS: BP 93/69; PULSE 91; RESP 18; TEMP 97.2; O2SAT 97
[2023-08-25] MEDS: ARIPIPRAZOLE 10 MG TABLET PO SCH (07:51)
[2023-08-25 07:57] VITALS: RESP 18; O2SAT 99
[2023-08-25] MEDS ORDERED: LITH300T5 PO ×2 (09:55)
[2023-08-25] MEDS ORDERED: ARIP10TA15 PO ×2 (09:55)
--- NOTE | 2023-08-25 17:28 | NUR ---
Nursing Progress Note: Problem: Pt admitted on 5149 for Grave Disability, per hold pt was seen urinating in public. Presents psychotic and manic. Pt presents with symptoms of severe eve, unable to formulate a plan to meet needs due to thought disorder. No place to sleep. Pt was kicked out of [place] and has been non-medication compliant. Pt has a 5 month old child that was taken by CPS. Interventions: 1:1 assessment, therapeutic conversation, active listening, medication administration/education/monitoring, behavior monitoring and intervention as needed; provided distraction ,redirection, limit setting, reality orientation, verbal de-escalation, show of support by staff and security, administered OSEGUERA, administered emergent medication, and maintained Q15 minute safety checks. Response: Patient was awake at shift change. She was already dressed and ready to start her day. Patient reluctantly takes her Abilify all the while complaining she doesnt need it. She spends all day out on the unit seeking attention wherever she can get it. She prefers to be at the center. Patient continues to be super intrusive and walks around asking the same questions over and over. She is very impulsive and impatient. When answering her questions she is already speaking before she gets the full answer. Sometimes she just walks away before receiving an answer. She is quite child-like. Patient has no impulse control. She acts out multiple times a day, yelling things like My family has abandoned me, my doesnt love me, they stole my baby. When talking to patient about things, she always states understanding, but never does. Plan: Pt has been accepted at the [facility] with a plan for her to discharge Friday?
[2023-08-25 19:00] VITALS: RESP 16; O2SAT 98
[2023-08-25 20:00] VITALS: BP 105/71; PULSE 89; RESP 16; TEMP 98.6; O2SAT 98
[2023-08-25] MEDS: lithium carbonate 150mg capsule PO SCH (20:56)
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
--- NOTE | 2023-08-26 03:45 | NUR ---
Pt c/o / chest pain to mid sternum. No SOB. No Nausea. Additionally reporting pain to neck. EKG obtained. ED MD Dr. Roy read results. No STEMI identified. Pt giggling when results were shared with her. Addendum: 08/26/23 at 0416 by Salvatore HEATONN Pt thinking about issues. Plaster Applicator redirected patient. She no further complaints about pain.
[2023-08-26] MEDS: ARIPIPRAZOLE 10 MG TABLET PO SCH (08:45)
== END 2023-08-26 10:26 | DRG 751 ==
LOC: ER 09:41 → ED HOLD 17:45 → ADULT MH 23:47
PROVIDERS: ADMIT Psychiatry & Neurology Psychiatry; ATTEND Psychiatry & Neurology Psychiatry
DX: F23 Brief psychotic disorder (principal); F31.2 Bipolar disorder, current episode manic severe with psychotic features; Z91.148 Patient's other noncompliance with medication regimen for other reason; E66.3 Overweight; Z20.822 Contact with and (suspected) exposure to COVID-19; E87.6 Hypokalemia; J45.909 Unspecified asthma, uncomplicated; Z59.01 Sheltered homelessness; Z63.5 Disruption of family by separation and divorce; Z68.27 Body mass index [BMI] 27.0-27.9, adult
CPT/HCPCS: 36415; 71045; 80053; 80061; 80305; 80320; 80329; 81001; 81025; 83036; 83735; 84443; 85025; 87081; 87811; 93005; 99285; A6250; J1200; J1630; J2060

== ENCOUNTER 2023-08-28 19:50 | Emergency (ER) | payer MEDICAID ==
[~2023-08-28] VITALS: Ht 157.5 cm; Wt 69.1 kg
[~2023-08-28 19:50] MED LIST changes: +ARIP10TA15 PO; -LAMO100T PO; -LAMO200T2 PO; -LAMO25TA5 PO; -LITH300C PO; +LITH300T5 PO; -NITR100C6 PO; +NO HOME MEDS; -OLAN15TA3 PO
[2023-08-28] MEDS ORDERED: LORazepam 2 mg/ml vial ONE (21:34)
[2023-08-28] MEDS ORDERED: haloperidol lactate 5mg/ml inj ONE (21:35)
[2023-08-28] MEDS ORDERED: diphenhydrAMINE 50 mg/ml inj ONE (21:35)
[2023-08-28 22:14] LABS: BASOPHILS % (AUTO) 0.2 % (0-1); EOSINOPHILS % (AUTO) 0 % (0-6); HEMATOCRIT 36.5 % (35.0-45.0); HEMOGLOBIN 11.6 g/dl (12.0-16.0); LYMPHOCYTES # (AUTO) 1.5 X10'3 (1.1-4.8); LYMPHOCYTES % (AUTO) 11.7 % (21-51); MEAN CORPUSCULAR HEMOGLOBIN 25.4 PG (27.0-31.0); MEAN CORPUSCULAR HGB CONC 31.6 g/dL (33.0-36.5); MEAN CORPUSCULAR VOLUME 80.1 FL (78-98); MEAN PLATELET VOLUME 7.7 FL (7.4-10.4); MONOCYTES # (AUTO) 0.8 X10'3 (0-0.9); MONOCYTES % (AUTO) 6.5 % (2-12); NEUTROPHILS # (AUTO) 10.1 X10'3 (1.8-7.7); NEUTROPHILS % (AUTO) 81.6 % (42-75); PLATELET COUNT 297 X10'3 (140-440); RED BLOOD COUNT 4.56 X10'6 (4.20-5.60); WHITE BLOOD COUNT 12.4 X10'3 (4.5-11.0)
[2023-08-28 22:30] LABS: ANION GAP 6 (8-16); BLOOD UREA NITROGEN 10 MG/DL (7-18); BUN/CREATININE RATIO 11.8 (10.0-20.0); CHLORIDE 108 MMOL/L (99-107); CREATININE 0.85 MG/DL (0.40-0.90); GLUCOSE 108 MG/DL (70-104); POTASSIUM 3.5 MMOL/L (3.5-5.1); SODIUM 139 MMOL/L (135-145); TOTAL CARBON DIOXIDE 24.6 MMOL/L (24-32)
[2023-08-28 22:31] LABS: ALANINE AMINOTRANSFERASE 30 U/L (12-78); ALBUMIN 3.2 G/DL (3.4-5.0); ALBUMIN/GLOBULIN RATIO 0.9 (1.1-1.5); ALKALINE PHOSPHATASE 88 IU/L (46-116); ASPARTATE AMINO TRANSFERASE 19 U/L (10-37); BILIRUBIN,TOTAL 0.2 MG/DL (0.1-1.0); CALCIUM 9.1 MG/DL (8.5-10.1); ETHANOL < 10 MG/DL (<10); TOTAL PROTEIN 6.9 G/DL (6.4-8.2); eCRCL 72 ML/MIN; eGFR 76 ML/MIN
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
--- NOTE | 2023-08-29 00:30 | NUR ---
Client continued to ask for items from her bag (i.e. a pineapple, Bible, then another Bible, etc). As soon as client was given requested items (except pineapple) she asked for something else. Client was talkative and intrusive. She required redirection, as she was approaching other patient area's. Labile and easily agitated.
--- NOTE | 2023-08-29 02:30 | NUR ---
Client resting on back. Resp even and unlabored.
--- NOTE | 2023-08-29 03:28 | NUR ---
Resting on back. Resp even and unlabored.
--- NOTE | 2023-08-29 05:00 | NUR ---
Resting on back. Resp even and unlabored.
--- NOTE | 2023-08-29 06:30 | NUR ---
Pt is lying in bed, she appears to be sleeping.
[2023-08-29] MEDS ORDERED: ARIP20TA4 PO (07:21)
[2023-08-29] MEDS ORDERED: LITH300C PO (07:21)
--- NOTE | 2023-08-29 09:10 | NUR ---
Pt is awake and using the bathroom, hat provided for UA.
--- NOTE | 2023-08-29 09:15 | NUR ---
UA collected and sent.
[2023-08-29] MEDS: ARIPIPRAZOLE 10 MG TABLET PO SCH (09:19)
[2023-08-29 09:22] LABS: URINE HCG NEGATIVE (NEG)
--- NOTE | 2023-08-29 09:23 | NUR ---
Pt is labile. Pt is tearful and sobbing loudly lying in bed.
[2023-08-29 09:24] LABS: BILIRUBIN,URINE NEGATIVE (Neg); CLARITY,URINE SLIGHTLY CLOUDY (Clear); COLOR,URINE YELLOW (Yellow); GLUCOSE, URINE NEGATIVE (Neg); KETONES,URINE NEGATIVE (Neg); LEUKOCYTE ESTERASE ,URINE NEGATIVE (Neg); NITRITES, URINE NEGATIVE (Neg); OCCULT BLOOD,URINE NEGATIVE (Neg); PROTEIN,URINE TRACE mg/dl (Neg); UROBILINOGEN,URINE 0.2 E.U/dL (0.2-1.0)
--- NOTE | 2023-08-29 09:30 | NUR ---
Pt provided with hygiene supplies including warm bath wipes and a new pair of undies.
[2023-08-29 09:31] LABS: UA COLLECTION TYPE NON-SPECIFIED
[2023-08-29 09:34] LABS: BACTERIA,URINE 1+ /HPF (Neg); MUCUS STRANDS MODERATE /LPF (Neg); RBC,URINE 0-2 /HPF (0-2); SQUAMOUS EPITHELIAL CELL,UR MODERATE /LPF (FEW); WBC,URINE 0-4 /HPF (0-4)
--- NOTE | 2023-08-29 09:37 | NUR ---
Pt provided with coloring materials, pt is calm and coloring.
[2023-08-29 10:07] LABS: URINE AMPHETAMINE SCREEN NEGATIVE (Neg); URINE BARBITUATE SCREEN NEGATIVE (Neg); URINE BENZODIAZEPINES SCREEN NEGATIVE (Neg); URINE CANNABINOID SCREEN NEGATIVE (Neg); URINE COCAINE SCREEN NEGATIVE (Neg); URINE METHADONE SCREEN NEGATIVE (Neg); URINE OPIATE SCREEN NEGATIVE (Neg); URINE PHENCYCLIDINE SCREEN NEGATIVE (Neg)
--- NOTE | 2023-08-29 10:10 | NUR ---
Pt is singing.
--- NOTE | 2023-08-29 10:21 | NUR ---
Per JERRY Najera, pt does not need to be seen as she has already been seen by [facility]. The [facility] office is just awaiting her packet/medical clearance to look for placement.
--- NOTE | 2023-08-29 11:58 | NUR ---
Faxed pt's TSH result from 08/14/23 to [facility] per request.
--- NOTE | 2023-08-29 12:01 | NUR ---
Pt does need to be re-evaluated as her 5150 expires today at 1358.
--- NOTE | 2023-08-29 12:23 | NUR ---
Pt ambulated to the bathroom.
--- NOTE | 2023-08-29 14:23 | NUR ---
Obtained order for lithium level per [facility] request for placement purposes.
--- NOTE | 2023-08-29 15:22 | NUR ---
Pt was re-evaluated by [facility] and a new 5150 was written for GD.
--- NOTE | 2023-08-29 17:22 | NUR ---
Pt's lithium level has been drawn, results pending.
--- NOTE | 2023-08-29 17:48 | NUR ---
[facility] [place] nurse.
--- NOTE | 2023-08-29 18:30 | NUR ---
Assumed patient care. Patient is awake, cooperative, no signs of distress.
--- NOTE | 2023-08-29 19:00 | NUR ---
pt. lying in bed resting . no distress noted.
--- NOTE | 2023-08-29 20:00 | NUR ---
Pt. cooperative with night time medications. Pt. requested to have snack and it was provided to her. Pt. is now lying in bed resting.
[2023-08-29] MEDS ORDERED: lithium carbonate 450mg CR tablet PO SCH (21:00)
--- NOTE | 2023-08-29 21:15 | NUR ---
pt. standing at nurses station talking to staff. Pt. is cooperative.
--- NOTE | 2023-08-29 22:16 | NUR ---
pt. lying on right side in bed sleeping
--- NOTE | 2023-08-29 23:47 | NUR ---
VS entered on wrong pt. Please disregard.
--- NOTE | 2023-08-29 23:47 | NUR ---
Antonio esquivel in EDM - 08/30/23 at 0419 by [email or web address] pts. VS obtained 97.3 temporal, Bp 91/50 , pulse rate 65, RR 16, Sats 99%RA.
--- NOTE | 2023-08-30 01:18 | NUR ---
pt. sleeping on right side. no distress
--- NOTE | 2023-08-30 03:03 | NUR ---
pt. lying on right side sleeping. No distress.
--- NOTE | 2023-08-30 04:54 | NUR ---
pt. awake using the restroom. Pt. walked to the nurses station to check the time and asked about breakfast "breakfast is at 8 o'clock" . Pt. returned to room.
[2023-08-30 06:09] VITALS: BP 96/59; PULSE 64; TEMP 97.8; O2SAT 97
--- NOTE | 2023-08-30 06:48 | NUR ---
Patient sleeping on her right side. Respirations nonlabored. No distress observed. Continue to monitor.
[2023-08-30 07:50] VITALS: RESP 16
--- NOTE | 2023-08-30 08:19 | NUR ---
Patient eating breakfast. No distress observed. Continue to monitor.
[2023-08-30] MEDS: ARIPIPRAZOLE 10 MG TABLET PO SCH (08:44)
== END 2023-08-30 09:15 ==
LOC: ER 19:51
DX: R45.851 Suicidal ideations (principal); Z20.822 Contact with and (suspected) exposure to COVID-19; R45.1 Restlessness and agitation; J45.909 Unspecified asthma, uncomplicated; F31.9 Bipolar disorder, unspecified; Z79.899 Other long term (current) drug therapy
CPT/HCPCS: 36415; 80053; 80178; 80305; 80320; 81001; 81025; 85025; 87811; 99285; J1200; J1630; J2060; 96372